=== PATIENT | female | born 1950 | race Caucasian/White ===

== ENCOUNTER → 2018-10-05 | Outpatient (CLI) | payer MEDICARE, BC ==
[~2018-10-05] MED LIST: AMLO10TA6 PO; DOXY100C15 PO; FURO-93 PO; LEVO150T5 PO; LEVO750T26 PO
== END | disposition home or self-care (01) ==
LOC: CFH 08:25
PROVIDERS: ATTEND Nurse Practitioner
DX: Z13.820 Encounter for screening for osteoporosis (principal); M85.88 Other specified disorders of bone density and structure, other site; I35.1 Nonrheumatic aortic (valve) insufficiency; I10 Essential (primary) hypertension
CPT/HCPCS: 77080; 93306

== ENCOUNTER 2019-12-17 07:36 | Outpatient (CLI) | payer MEDICARE ==
[~2019-12-17 07:36] MED LIST changes: -AMLO10TA6 PO; +AMLO10TA8 PO
== END 2019-12-17 23:59 | disposition home or self-care (01) ==
LOC: CVU 07:36
PROVIDERS: ATTEND Nurse Practitioner
DX: I08.0 Rheumatic disorders of both mitral and aortic valves (principal); E78.5 Hyperlipidemia, unspecified
CPT/HCPCS: 93306